=== PATIENT | female | born 1960 | race Caucasian/White ===

== ENCOUNTER → 2020-03-20 08:11 | Outpatient (BNVA) | payer MEDICARE, OTHER, SELFPAY | PROVIDERS: PCP Internal Medicine; Referring Provider Internal Medicine; Visit Provider Physical Therapy Assistant | DX: Z12.11 Encounter for screening for malignant neoplasm of colon (principal); Z86.010 Personal history of colon polyps; I10 Essential (primary) hypertension ==

== ENCOUNTER 2020-03-31 09:13 | Day surgery (SDC) | payer MEDICARE, OTHER, SELFPAY ==
--- NOTE | 2020-03-31 06:59 | W.COLOREPORT ---
Date of service: 03/31/20 Time of Service: 10:02 Colonoscopy Report Date of procedure: 03/31/20 Pre-op diagnosis general: Hx of colon polyps Post-op diagnosis procedure note: same (polyps and mild diverticulosis) Procedure: Colonoscopy with polypectomy Surgeon: Mihaela Esposito Anesthesia proc note operative: other (General/ASA 2/Vanessa Marroquin, GRABIEL) Estimated blood loss (mL): 2 Pathology: other (Cecal polyps x2, rectal polyp) Complications: None Disposition: no change Indications: The patient is here for Colonoscopy pre-op. Her last screening was in 2017 and was remarkable for tubulovillous adenoma's x 2 and a hyperplastic polyp. She has no family history of colon cancer. She has not had any bowel habit changes. -Discussed colonoscopy bowel prep as well as the procedure. Discussed possible complications of the procedure to include bleeding, pain, perforation, missed small lesion/polyp, sore throat, aspiration and adverse reaction to the medications. Questions were answered to patient?s satisfaction. No guarantees were implied or given. Prep: Miralax/Dulcolax Procedure Start Time: :02 Procedure End Time: 10:36 Retraction Time: 26 minutes Findings: 3 polyps mild diverticulosis Grade 1 internal hemorrhoids Procedure Description: After informed consent was obtained the patient was taken to the procedure room and placed in a left decubitous position. Monitors were applied and a time out was done. The patients name, date of , procedure, allergies to medications and metal in their body was reviewed. The patient was then sedated. Once sedated and comfortable a rectal exam was done. External exam was normal. Internal exam revealed a normal sphincter tone and no palpable masses. The scope was then introduced and retro-flexed. Grade 1 internal hemorrhoids were identified. The scope was then advanced to the cecum without difficulty. The ileocecal valve and appendiceal orifice were identified. The prep was adequate. The scope was then slowly retracted over 26 minutes back into the rectum. Polyps were removed with cold forceps in the cecum X2and in the rectum X1. There was mild dievrticulosis noted in the sigmoid colon as well as 2 inverted diverticula. The scope was removed and the patient was woken up and taken back to Same day surgery in stable condition. The patient tolerated the procedure well and there were no immediate complications. Follow up: The patient should follow up in 3-5 years unless they develop changes in bowel habits or other new gastrointestinal complaints.
--- NOTE | 2020-03-31 07:00 | W.PM.DSUDISC ---
Discharge Plan Disposition Patient Disposition: HOME Condition: Good Discharge Details Reason For Visit: Hx of polyps Attending Provider: Mihaela Esposito Primary Care Provider: Waleska Recio Home Meds and New Rx's Prescriptions: Continued hydrochlorothiazide 25 mg tablet 25 mg PO DAILY RF: 0 omeprazole 40 mg capsule,delayed release(DR/EC) 40 mg PO DAILY RF: 0 zolpidem [Ambien] 5 mg tablet 5 mg PO QHS PRNRF: 0 aspirin [Aspir-81] 81 MG tablet,delayed release (DR/EC) 81 mg PO DAILY RF: 0 metoprolol tartrate 50 MG tablet 50 mg PO DAILY RF: 0 Discontinued polyethylene glycol 3350 17 gram/dose powder 238 g PO ONCE Qty: 238 RF: 0 bisacodyl [Dulcolax (bisacodyl)] 5 mg tablet,delayed release (DR/EC) 5 mg PO ONCE Qty: 4 RF: 0 Discharge Instructions Instructions: Diverticulosis (DC), Colorectal Polyps (DC) Additional Instructions: Findings: 3 small polyps mild diverticulosis Follow up: 3-5 years Please call if you develop: fevers >101.5 Nausea or Vomiting Abdominal pain that is not transient DAY SURGERY UNIT POST ENDOSCOPY INSTRUCTIONS 1. Because there will be medication in your system for the next 24 hours, you may feel a little sleepy. Your coordination will be affected. Therefore: a. Do not drive or operate dangerous equipment for 24 hours. b. Do not drink alcohol beverages for 24 hours (not even beer). c. Plan to go home and rest for the day. 2. Generally there are no restrictions on your activity after a day or so has gone by, but you may feel a bit fatigued for a few days. 3 After you arrive home you may have a light meal and return to a normal diet as you can tolerate it without feeling sick to your stomach. 4. After surgery, you may feel pain or discomfort. This should be only transient, but if it persists please contact your doctor. 5. If there are any questions regarding the findings of your procedure, please feel free to contact your doctor. 6. If you are unable to contact your doctor with a problem, contact the hospital at [phone]. 7. Continue all your regular medications unless directed otherwise. I understand the above instructions and have no questions. Signature of Patient or Responsible Adult Escort Date/Time Name of Responsible Adult Escort Signature of Nurse Date/Time Activity:: Activity as Tolerated Diet:: High fiber diet Discharge Orders Discharge Orders: Discharge Order (Routine); Ordered 03/31/20 Ordered By: Mihaela Esposito
[2020-03-31 09:33] VITALS: BP 155/76; PULSE 65; RESP 16; TEMP 36.5; O2SAT 97
[2020-03-31] MEDS: Lactated Ringers 1,000 ML 80 ML IV (09:51)
--- NOTE | 2020-03-31 10:13 | BOWEL_PTH ---
PATIENT: DELONTE WBEBER LOC: [facility] U#:[id number] AGE/SX: 59/F ROOM: RE03/31/[address]: Mihaela Esposito MD : [id number] BED: DIS: 03/31/2020 SPEC #: [id number] RECD: 03/31/20 11:30 STATUS: THOMAS REQ #: [id number] YOAN: 03/31/20 10:[address]: Mihaela Esposito DEPT: Surgical Specimen RECD BY: Delisa Goncalves ENTERED: 03/31/20 11:33 SP TYPE: Bowel OTHR DR: Waleska Recio Tissues: 1 - BIOPSY BOWEL 2 - BIOPSY BOWEL Procedures: GROSS AND MICRO LEVEL 4 Comments: [id number]
[2020-03-31 11:09] VITALS: BP 144/82; PULSE 60; RESP 17; TEMP 36.2; O2SAT 98
== END 2020-03-31 11:42 | disposition home or self-care (01) ==
LOC: SUR 09:13
PROVIDERS: PCP Internal Medicine; Visit Provider Surgery
PROC: 0DJD8ZZ Inspection of Lower Intestinal Tract, Via Natural or Artificial Opening Endoscopic (ICD-10-PCS; CPT 45378; principal; 2020-03-31 09:15)
DX: Z12.11 Encounter for screening for malignant neoplasm of colon (principal); Z86.010 Personal history of colon polyps; D12.0 Benign neoplasm of cecum; K62.1 Rectal polyp; I10 Essential (primary) hypertension; K57.30 Diverticulosis of large intestine without perforation or abscess without bleeding
CPT/HCPCS: 45380; 88305; J2001

== ENCOUNTER 2025-07-16 09:11 | Outpatient (CLI) | payer MEDICARE, SELFPAY ==
--- NOTE | 2025-07-16 06:00 | DI.RAD_ITS ---
Exam(s) XR PAIN CLINIC SACRIOILIAC 2V EXAM: XR PAIN CLINIC SACRIOILIAC 2V CLINICAL HISTORY: DX: Sacroiliac Dysfunction TECHNIQUE: 2D and realtime digital imaging was performed. CONTRAST MATERIAL: Refer to procedure report. COMPARISON: No exams were available for comparison FINDINGS: Fluoroscopy was provided for Dr. Corley during the performance of a left SI joint injection. Please refer to the procedure report for complete details. Ka,r=2.0 mGy IMPRESSION: RADIATION DOSE DELIVERED: 0.0 0.0 0
[2025-07-16 09:22] VITALS: BP 145/67; PULSE 65; RESP 18; TEMP 36.4; O2SAT 98
--- NOTE | 2025-07-16 09:44 | PDOC.PAIN ---
Date of service: 07/16/25 Time of Service: 10:12 Pain Managment Procedure Note Procedure Note Procedure Note: ?Sacroiliac Joint Steroid Injection ? Location: ? ? Left SI joint ? Pre-procedure Diagnosis: Sacroiliitis, not elsewhere classified - M46.1 ? Post-procedure Diagnosis:? The same as above ? Sedation:? NONE ? Medication: Depo-Medrol 40 mg, bupivacaine 0.5% 1 mL, Omnipaque 0.25 mL per joint ? Estimated blood loss:? less than 2 cc ? Surgeon:? Dar Corley MD ? COMMENT: THIS WILL BE BOTH DIAGNOSTIC AND THERAPEUTIC ? Procedure Detail:? The procedure and potential risks were explained to the patient and informed written consent was obtained. The patient was escorted to the procedure room and placed in the prone position. Pillows were utilized for proper positioning and comfort. Time out was performed in the procedure room with nursing staff confirming the patient's identity, procedure to be performed, allergies, and any blood thinning or anti-platelet medications. The patient's lumbosacral area was prepped with ChloraPrep and draped in a sterile fashion. Sterile technique was maintained throughout the procedure.? Sterile gloves were used, a face mask was worn, and new single dose vials of all medications were used with the top being swabbed with alcohol and given time to dry prior to withdrawal of medication. Lidocaine 1% was used to anesthetize the skin. With fluoroscopic guidance, a 22-gauge 3.5 spinal needle was advanced into the posteroinferior aspect of the Left SI joint . Confirmation of intra-articular position of the needle tip was obtained with injection of 0.25cc of Omnipaque 240 contrast which showed appropriate spread [within the joint].? Following negative aspiration, 40mg of methylprednisolone mixed with 1 mL of bupivacaine 0.5% was injected.? The needle was gently removed. ?The patient tolerated the procedure well and was discharged home with instructions.? Permanent images saved and recorded. Plan:? Follow up prn. PAIN PRE PROCEDURE 02/07 POST PROCEDURE 11/08 COMMENT: 40 % BETTER AFTER INJECTION ?If that is not effective then would proceed with left-sided medial branch blocks at L3, 4, 5 or intra-articular facet injections. Would also consider epidural steroid injection at L5-S1 with catheter to the left and cephalad. Coding Conscious Sedation used for procedure: No CPT Codes: SI Joint Inj; incl Fluoro - 72777 ([id number] ~G) Additional Codes: Date of Service (85850) Diagnoses: Sacroiliitis, not elsewhere classified - M46.1
[2025-07-16 09:52] VITALS: PULSE 68; O2SAT 94
[2025-07-16 10:00] VITALS: PULSE 65; O2SAT 94
[2025-07-16] MEDS: Bupivacaine 0.5% Pres-Free 10 ML VIAL IJ (10:04)
[2025-07-16] MEDS: methylPREDNISolone ACETATE 40 MG/ML VIAL IJ (10:05)
[2025-07-16] MEDS: Omnipaque 240 MG/ML 50 ML BTL IJ (10:05)
[2025-07-16] MEDS: Nerve Block Tray 1 EACH MC (10:06)
== END 2025-07-16 09:12 | disposition home or self-care (01) ==
LOC: PC 09:11
PROVIDERS: PCP Internal Medicine; Visit Provider Anesthesiology Pain Medicine
DX: M54.50 Low back pain, unspecified (principal); M46.1 Sacroiliitis, not elsewhere classified
CPT/HCPCS: 27096; 72200; J0665; J1010; Q9967